=== PATIENT | male | born 1995 | race Asian ===

== ENCOUNTER 2019-06-28 01:41 | Emergency (ER) | payer OTHER ==
--- NOTE | 2019-06-28 02:28 | ED ---
Skin Complaint - HPI Summary HPI Summary: This patient is a 23 year old M presenting to ED with a chief complaint of subjective right calf skin infection since 06/26/19. Patient had a wasp sting last week near the right ankle and the right calf 5-6 days ago. He does not think there was immediate swelling after the stings. The two stings occurred a day apart. The patient rates the pain 0/10 in severity. Symptoms aggravated by nothing. Symptoms alleviated by nothing. Patient reports pruritis and swelling of right calf. Patient denies fever. - History of Current Complaint Chief Complaint: EDRashSkinAbscess Stated Complaint: SKIN INFECTION ON R CALF PER PT Hx Obtained From: Patient Onset/Duration: Started Days Ago - 06/26/19, Still Present Skin Exposure Onset/Duration: Days Ago - Wasp stings were 5-6 ago Timing: Constant, Lasting Days - Itching started 2 days ago Onset Severity: Mild Current Severity: Mild Pain Intensity: 0 Pain Scale Used: 0-10 Numeric Skin Location: Other: - Right calf and right ankle Character: Pruritus, Redness Aggravating Symptom(s): Nothing Alleviating Symptom(s): Nothing Associated Signs & Symptoms: Negative - Fever Related History: Insect Bite/Sting - Wasp - Allergy/Home Medications Allergies/Adverse Reactions: Allergies Allergy/AdvReac Type Severity Reaction Status Date / Time No Known Allergies Allergy Verified 06/28/19 01:43 PMH/Surg Hx/FS Hx/Imm Hx Endocrine/Hematology History: Denies: Hx Diabetes Cardiovascular History: Denies: Hx Hypertension Respiratory History: Denies: Hx Asthma Sensory History: Denies: Hx Legally Blind, Hx Deafness Opthamlomology History: Denies: Hx Legally Blind EENT History: Denies: Hx Deafness - Surgical History Surgery Procedure, Year, and Place: Elbow and femur surgery Infectious Disease History: No Infectious Disease History: Denies: Traveled Outside the [place] in Last 30 Days - Family History Known Family History: Positive: Other - asthma Negative: Hypertension, Diabetes - Social History Alcohol Use: None Hx Substance Use: No Substance Use Type: Reports: None Hx Tobacco Use: No Smoking Status (MU): Never Smoked Tobacco Review of Systems Negative: Fever Skin: Other - Wasp sting and rash on right calf and right ankle All Other Systems Reviewed And Are Negative: Yes Physical Exam - Summary Physical Exam Summary: Appearance: Well-appearing, Well-nourished, lying in bed comfortable Skin: On the right leg there are two areas of erythema (one on the mid-leg laterally, another over anterior ankle). There are small scabbed wounds consistent with an excoriated papule, likely from wasp stings. No fluctuance or lymphangitic streaking, both areas are discrete from one another. Eyes: sclera anicteric, no conjunctival pallor ENT: mucous membranes moist Neck: deferred Respiratory: No signs of respiratory distress Cardiovascular: Appears well perfused, pulses are nml Abdomen: deferred Musculoskeletal: Moving all 4 extremities without obvious discomfort Neurological: Awake and alert, mentation is normal, speech is fluent and appropriate Psychiatric: affect is normal, does not appear anxious or depressed Triage Information Reviewed: Yes Vital Signs On Initial Exam: Initial Vitals Temp Pulse Resp BP Pulse Ox 99.1 F 54 16 147/86 98 06/28/19 01:43 06/28/19 01:43 06/28/19 01:43 06/28/19 01:43 06/28/19 01:43 Vital Signs Reviewed: Yes Diagnostics - Vital Signs Vital Signs Temp Pulse Resp BP Pulse Ox 06/28/19 01:43 99.1 F 54 16 147/86 98 - Laboratory Lab Statement: Any lab studies that have been ordered have been reviewed, and results considered in the medical decision making process. Course/Dx - Course Course Of Treatment: This patient is a 23 year old M presenting to ED with a chief complaint of subjective right calf skin infection since 06/26/19. Patient was stung by wasps 5-6 days ago, which could be what is contributing to the skin rashes through delayed onset allergic rxn, but he could also have cellulitis. The rash is pruritic, not painful, and he has two discrete areas of skin erythema, both associated with wasp stings, so I think it is much more likely that he has delayed hypersensitivity reaction rather than bacterial cellulitis. Therefore, I counseled him on signs that would be consistent with infection (streaking, pain, etc.), and told him to fill the rx if that happens. 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 Patient understands and agrees with this plan. - Diagnoses Provider Diagnoses: Wasp sting Discharge - Sign-Out/Discharge Documenting (check all that apply): Patient Departure - Discharge Patient Received Moderate/Deep Sedation with Procedure: No - Discharge Plan Condition: Good Disposition: HOME Prescriptions: Cephalexin CAP* [Keflex CAP*] 500 mg PO QID #28 cap Patient Education Materials: Cellulitis (ED) Referrals: [facility] [Outside] No Primary Care Phys,NOPCP [Primary Care Provider] - Additional Instructions: I think that these skin reactions are more likely a delayed hypersensitivity reaction to the envenomation from the wasp stings than they are a cellulitis ( skin infection). I have sent a prescription for antibiotics to your pharmacy to fill if there is any change to the skin that would indicate infection, such as red steaking spreading from the area or a change from itchy to painful. If I am correct, it should start to improve over the next few days to a week. - Billing Disposition and Condition Condition: GOOD Disposition: Home - Attestation Statements Document Initiated by Odilia: Yes Documenting Scribe: Afshin Narvaez Provider For Whom Odilia is Documenting (Include Credential): Kieran Sanchez MD Scribe Attestation: I, Afshin Narvaez, scribed for Kieran Sanchez MD on 06/28/19 at 0613. Scribe Documentation Reviewed: Yes Provider Attestation: The documentation as recorded by the Afshin stinson accurately reflects the service I personally performed and the decisions made by me, Kieran Sanchez MD Status of Scribe Document: Viewed
[2019-06-28 02:53] VITALS: BP 114/81
== END 2019-06-28 02:56 | disposition home or self-care (01) ==
LOC: ED 01:41
DX: T63.461A Toxic effect of venom of wasps, accidental (unintentional), initial encounter (principal); Y92.9 Unspecified place or not applicable
CPT/HCPCS: 99282